=== PATIENT | female | born 1985 | race Hispanic/Latino ===

== ENCOUNTER 2020-07-20 17:45 | Emergency (ER) | payer MEDICARE ==
[~2020-07-20] VITALS: Ht 160 cm; Wt 76.2 kg
[2020-07-20] MEDS ORDERED: HYDROCODONE/APAP 10MG-325MG TAB PO ONE (19:00)
[2020-07-20] MEDS ORDERED: PREDNISONE 20 MG TAB PO ONE (19:00)
[2020-07-20] MEDS ORDERED: KETOROLAC TROMETHAMINE 60 MG/2 ML VIAL IM ONE (19:00)
[2020-07-20] MEDS ORDERED: PREDNISONE 20 MG TAB ONE (19:09)
[2020-07-20] MEDS ORDERED: HYDROCODONE/APAP 10MG-325MG TAB ONE (19:09)
[2020-07-20] MEDS ORDERED: KETOROLAC TROMETHAMINE 60 MG/2 ML VIAL ONE (19:09)
[2020-07-20] MEDS ORDERED: NAPROXEN250 MG PO (20:52)
[2020-07-20] MEDS ORDERED: ULTRAM 50MG50 MG PO (20:52)
== END 2020-07-20 21:00 | disposition home or self-care (01) ==
LOC: ER 18:37
DX: M72.2 Plantar fascial fibromatosis (principal); M25.572 Pain in left ankle and joints of left foot; M25.571 Pain in right ankle and joints of right foot
CPT/HCPCS: 73610; 99283; J1885; J7512

== ENCOUNTER 2020-10-20 21:26 | Emergency (ER) | payer OTHER ==
[~2020-10-20] VITALS: Ht 160 cm; Wt 76.2 kg
[~2020-10-20 21:26] MED LIST: NAPROXEN250 MG PO; ULTRAM 50MG50 MG PO
[2020-10-20] MEDS ORDERED: NAPROXEN250 MG PO (22:12)
[2020-10-20] MEDS ORDERED: ULTRAM50 MG PO (22:12)
[2020-10-20] MEDS ORDERED: PREDNISONE20 MG PO (22:12)
[2020-10-20] MEDS ORDERED: KETOROLAC TROMETHAMINE 60 MG/2 ML VIAL ONE (22:25)
[2020-10-20] MEDS ORDERED: HYDROCODONE/APAP 10MG-325MG TAB ONE (22:26)
[2020-10-20] MEDS ORDERED: METHYLPREDNISOLONE SOD SUCC 125 MG/2ML VIAL ONE (22:26)
[2020-10-20] MEDS ORDERED: HYDROCODONE/APAP 10MG-325MG TAB PO ONE (22:30)
[2020-10-20] MEDS ORDERED: METHYLPREDNISOLONE SOD SUCC 125 MG/2ML VIAL IM ONE (22:30)
[2020-10-20] MEDS ORDERED: KETOROLAC TROMETHAMINE 60 MG/2 ML VIAL IM ONE (22:30)
== END 2020-10-20 23:10 | disposition home or self-care (01) ==
LOC: ER 22:09
DX: L40.50 Arthropathic psoriasis, unspecified (principal); G89.29 Other chronic pain; Z79.1 Long term (current) use of non-steroidal anti-inflammatories (NSAID); Z79.52 Long term (current) use of systemic steroids; Z79.899 Other long term (current) drug therapy
CPT/HCPCS: J1885; J2930

== ENCOUNTER 2020-11-19 00:10 | Emergency (ER) | payer OTHER ==
[~2020-11-19] VITALS: Ht 160 cm; Wt 76.2 kg
[~2020-11-19 00:10] MED LIST changes: +PREDNISONE20 MG PO; +ULTRAM50 MG PO
[2020-11-19] MEDS ORDERED: KETOROLAC TROMETHAMINE 30 MG/ML VIAL IM STA (01:00)
[2020-11-19] MEDS ORDERED: DEXAMETHASONE 4 MG TAB PO STA (01:00)
[2020-11-19] MEDS ORDERED: ACETAMINOPHEN 325 MG TAB PO ONE (01:00)
== END 2020-11-19 02:06 | disposition home or self-care (01) ==
LOC: ER 00:54
DX: M25.571 Pain in right ankle and joints of right foot (principal); M79.671 Pain in right foot; L40.50 Arthropathic psoriasis, unspecified; Z79.1 Long term (current) use of non-steroidal anti-inflammatories (NSAID); Z79.52 Long term (current) use of systemic steroids
CPT/HCPCS: 99282; J1885; J8540

== ENCOUNTER 2021-09-02 16:39 | Emergency (ER) | payer OTHER ==
[~2021-09-02] VITALS: Ht 160 cm; Wt 76.2 kg
[2021-09-02] MEDS ORDERED: ONDANSETRON HCL 4 MG ORAL DISINTEGRATING TAB PO ONE (19:45)
[2021-09-02] MEDS ORDERED: ONDANSETRON HCL 4 MG ORAL DISINTEGRATING TAB ONE (19:47)
== END 2021-09-02 19:50 | disposition home or self-care (01) ==
LOC: ER 19:25
DX: R11.2 Nausea with vomiting, unspecified (principal); J11.1 Influenza due to unidentified influenza virus with other respiratory manifestations; L40.50 Arthropathic psoriasis, unspecified
CPT/HCPCS: 99282; Q0162

== ENCOUNTER 2022-02-08 14:17 | Emergency (ER) | payer OTHER ==
[~2022-02-08] VITALS: Ht 160 cm; Wt 76.2 kg
== END 2022-02-08 16:06 | disposition home or self-care (01) ==
LOC: ER 14:23
DX: R05.9 Cough, unspecified (principal); B34.9 Viral infection, unspecified; Z20.822 Contact with and (suspected) exposure to COVID-19; Z98.84 Bariatric surgery status
CPT/HCPCS: 87400; 99283; U0002

== ENCOUNTER 2022-07-04 16:08 | Emergency (ER) | payer OTHER ==
[~2022-07-04] VITALS: Ht 160 cm; Wt 76.2 kg
[2022-07-04] MEDS ORDERED: ONDANSETRON HCL INJ 2MG/ML 2ML 2 MG/ML VIAL IV STA (16:17)
[2022-07-04] MEDS ORDERED: FAMOTIDINE 20 MG/2 ML VIAL IV STA (16:17)
[2022-07-04] MEDS ORDERED: SODIUM CHLORIDE 0.9% 1000ML 1,000 ML IV ONE (16:30)
[2022-07-04] MEDS ORDERED: Morphine 2mg Syringe 2 MG/ML SYR IV ONE (16:30)
[2022-07-04 16:31] LABS: BASOPHILS # (AUTO) 0.1 (0.0-0.1); BASOPHILS % 0.4 % (0.0-1.0); EOSINOPHILS # (AUTO) 0.1 (0.0-0.4); EOSINOPHILS % 0.6 % (0.0-6.0); HEMATOCRIT 42.3 % (34.2-44.1); HEMOGLOBIN 14.1 g/dL (12.0-16.0); LYMPHOCYTES # (AUTO) 2.6 (1.0-3.2); LYMPHOCYTES % 22.5 % (18.0-39.1); MEAN CORPUSCULAR HEMOGLOBIN 31.5 pg (28-32); MEAN CORPUSCULAR HGB CONC 33.3 g/dL (31-35); MEAN CORPUSCULAR VOLUME 94.6 fL (81-99); MONOCYTES # (AUTO) 0.8 (0.2-0.8); MONOCYTES % 6.6 % (4.4-11.3); NEUTROPHILS % 69.6 % (38.7-80.0); PLATELET COUNT 318 x10e3/uL (140-360); RED BLOOD COUNT 4.47 x10e6/uL (3.6-5.1); RED CELL DISTRIBUTION WIDTH 11.8 % (11.7-14.4)
[2022-07-04 16:44] LABS: ALBUMIN 3.8 g/dL (3.5-5.0); ALBUMIN/GLOBULIN RATIO 1.2 (0.8-2.0); ANION GAP 14.7 mmol/L (8-16); CALCIUM 9.2 mg/dL (8.4-10.2); CREATININE, SERUM 0.71 mg/dL (0.57-1.11); POTASSIUM 3.7 mmol/L (3.5-5.1)
[2022-07-04] MEDS ORDERED: ONDANSETRON ODT4 MG PO (17:59)
[2022-07-04] MEDS ORDERED: PEPCID20 MG PO (17:59)
[2022-07-04] MEDS ORDERED: METOCLOPRAMIDE HCL 10 MG/2ML VIAL IV ONE (18:15)
[2022-07-04 18:57] LABS: CLARITY,URINE CLEAR (CLEAR); COLOR,URINE YELLOW (YELLOW); KETONES,URINE TRACE (NEGATIVE); LEUKOCYTE ESTERASE ,URINE NEGATIVE (NEGATIVE); NITRITE,URINE NEGATIVE (NEGATIVE); PROTEIN,URINE DIPSTICK NEGATIVE (NEGATIVE); URINE UROBILINOGEN 1 mg/dL (0.2 - 1)
[2022-07-04 18:58] LABS: BACTERIA,URINE FEW /HPF; EPITHELIAL CELLS,URINE FEW /LPF; MUCUS,URINE MANY (RARE); RBC,URINE 0-5 /HPF (0-5); WBC,URINE (MAN) 0-5 /HPF (0-5)
== END 2022-07-04 19:22 | disposition home or self-care (01) ==
LOC: ER 16:14
DX: R11.2 Nausea with vomiting, unspecified (principal); R10.13 Epigastric pain; L40.50 Arthropathic psoriasis, unspecified; Z98.84 Bariatric surgery status
CPT/HCPCS: 36415; 80053; 81001; 83690; 85025; 99284; J2270; J2405; J2765; J7030

== ENCOUNTER 2022-07-18 15:10 | Emergency (ER) | payer OTHER ==
[~2022-07-18] VITALS: Ht 160 cm; Wt 76.2 kg
[~2022-07-18 15:10] MED LIST changes: +ONDANSETRON ODT4 MG PO; +PEPCID20 MG PO
[2022-07-18] MEDS ORDERED: PROAIR DIGIHAL90 MCG PO (16:03)
[2022-07-18] MEDS ORDERED: IBUPROFEN600 MG PO (16:03)
[2022-07-18] MEDS ORDERED: BENZONATATE200 MG PO (16:03)
== END 2022-07-18 16:55 | disposition home or self-care (01) ==
LOC: ER 15:23
DX: R05.9 Cough, unspecified (principal); U07.1 COVID-19; L40.50 Arthropathic psoriasis, unspecified; Z98.84 Bariatric surgery status
CPT/HCPCS: 0223U; 36415; 87400; 99282

== ENCOUNTER 2022-08-29 19:04 | Emergency (ER) | payer OTHER ==
[~2022-08-29] VITALS: Ht 160 cm; Wt 76.2 kg
[~2022-08-29 19:04] MED LIST changes: +BENZONATATE200 MG PO; +IBUPROFEN600 MG PO; +PROAIR DIGIHAL90 MCG PO
[2022-08-29] MEDS ORDERED: KETOROLAC TROMETHAMINE 60 MG/2 ML VIAL IM STA (19:18)
[2022-08-29 21:59] VITALS: O2SAT 100
[2022-08-29] MEDS ORDERED: AZITHROMYCIN250 MG PO (22:01)
[2022-08-29] MEDS ORDERED: VENTOLIN HFA18 GM INH (22:01)
[2022-08-29] MEDS ORDERED: PREDNISONE20 MG PO (22:01)
== END 2022-08-29 22:01 | disposition home or self-care (01) ==
LOC: ER 19:15
DX: R05.9 Cough, unspecified (principal); J06.9 Acute upper respiratory infection, unspecified; R07.89 Other chest pain; L40.50 Arthropathic psoriasis, unspecified; Z20.822 Contact with and (suspected) exposure to COVID-19; Z98.84 Bariatric surgery status
CPT/HCPCS: 83518; 87070; 87400; 93005; 99283; J1885; U0002

== ENCOUNTER 2023-11-09 19:17 | Emergency (ER) | payer BC ==
[~2023-11-09] VITALS: Ht 160 cm; Wt 65.8 kg
[~2023-11-09 19:17] MED LIST changes: +AZITHROMYCIN250 MG PO; +NAPROSYN500 MG PO; +ORPHENADRINE C100 MG PO; +VENTOLIN HFA18 GM INH
[2023-11-09 19:23] VITALS: TEMP 98.4
[2023-11-09] MEDS ORDERED: ONDANSETRON HCL 4 MG ORAL DISINTEGRATING TAB PO ONE (19:30)
[2023-11-09] MEDS: ONDANSETRON HCL INJ 2MG/ML 2ML 2 MG/ML VIAL IV STA (19:48)
[2023-11-09] MEDS: SODIUM CHLORIDE 0.9% 1000ML 1,000 ML IV STA ×2 (19:48)
[2023-11-09] MEDS: KETOROLAC TROMETHAMINE 30 MG/ML VIAL IV STA (19:49)
[2023-11-09 20:04] LABS: BASOPHILS % 0.4 % (0.0-1.0); EOSINOPHILS # (AUTO) 0.3 (0.0-0.4); EOSINOPHILS % 3.7 % (0.0-6.0); HEMATOCRIT 43.4 % (34.2-44.1); HEMOGLOBIN 14.3 g/dL (12.0-16.0); LYMPHOCYTES # (AUTO) 2.1 (1.0-3.2); LYMPHOCYTES % 26.1 % (18.0-39.1); MEAN CORPUSCULAR HEMOGLOBIN 31.9 pg (28-32); MEAN CORPUSCULAR HGB CONC 32.9 g/dL (31-35); MEAN CORPUSCULAR VOLUME 96.9 fL (81-99); MONOCYTES # (AUTO) 0.5 (0.2-0.8); MONOCYTES % 6.7 % (4.4-11.3); NEUTROPHILS # (AUTO) 5.1 (2.1-6.9); NEUTROPHILS % 62.9 % (38.7-80.0); PLATELET COUNT 288 x10e3/uL (140-360); RED BLOOD COUNT 4.48 x10e6/uL (3.6-5.1); RED CELL DISTRIBUTION WIDTH 11.9 % (11.7-14.4); WHITE BLOOD COUNT 8.11 x10e3/uL (4.8-10.8)
[2023-11-09 20:08] LABS: BILIRUBIN,URINE SMALL (NEGATIVE); CLARITY,URINE SL CLOUDY (CLEAR); COLOR,URINE YELLOW (YELLOW); GLUCOSE, URINE NEGATIVE (NEGATIVE); KETONES,URINE 2+ (NEGATIVE); LEUKOCYTE ESTERASE ,URINE NEGATIVE (NEGATIVE); NITRITE,URINE NEGATIVE (NEGATIVE); PH,URINE 6 (5 - 7); PROTEIN,URINE DIPSTICK NEGATIVE (NEGATIVE); URINE UROBILINOGEN 2 mg/dL (0.2 - 1)
[2023-11-09 20:10] LABS: AMPHETAMINES SCREEN,URINE NEGATIVE (NEGATIVE); BENZODIAZEPINES SCREEN,URINE POSITIVE (NEGATIVE); CANNABINOIDS SCREEN,URINE POSITIVE (NEGATIVE); METHADONE SCREEN, URINE NEGATIVE (NEGATIVE); OPIATES SCREEN,URINE NEGATIVE (NEGATIVE); PHENCYCLIDINE SCREEN,URINE NEGATIVE (NEGATIVE)
[2023-11-09 20:19] LABS: ALBUMIN 3.6 g/dL (3.5-5.0); ALBUMIN/GLOBULIN RATIO 1.2 (0.8-2.0); ANION GAP 12.8 mmol/L (8-16); BILIRUBIN,TOTAL 0.7 mg/dL (0.2-1.2); CALCIUM 8.9 mg/dL (8.4-10.2); CREATININE, SERUM 0.69 mg/dL (0.57-1.11); POTASSIUM 3.8 mmol/L (3.5-5.1); TOTAL PROTEIN 6.7 g/dL (6.5-8.1)
[2023-11-09 20:23] LABS: BACTERIA,URINE MODERATE /HPF; EPITHELIAL CELLS,URINE MODERATE /LPF
[2023-11-09 21:35] VITALS: PULSE 80; RESP 16
[2023-11-09] MEDS ORDERED: ONDANSETRON ODT4 MG PO (22:03)
[2023-11-09] MEDS ORDERED: PAXLOVID 300-11 EAC1 PO (22:03)
[2023-11-09] MEDS ORDERED: KETOROLAC TROME10 MG PO (22:03)
[2023-11-09 22:57] VITALS: BP 135/86; PULSE 77; RESP 16; O2SAT 100
== END 2023-11-09 22:15 | disposition home or self-care (01) ==
LOC: ER 19:25
DX: R50.9 Fever, unspecified (principal); U07.1 COVID-19; R11.2 Nausea with vomiting, unspecified; R10.30 Lower abdominal pain, unspecified; R51.9 Headache, unspecified; F19.10 Other psychoactive substance abuse, uncomplicated
CPT/HCPCS: 36415; 74176; 80053; 80307; 81001; 83690; 85025; 99284; J1885; J2405; J7030; U0002

== ENCOUNTER 2024-03-19 16:28 | Emergency (ER) | payer SELFPAY ==
[~2024-03-19] VITALS: Ht 160 cm; Wt 65.8 kg
[~2024-03-19 16:28] MED LIST changes: +KETOROLAC TROME10 MG PO; +PAXLOVID 300-11 EAC1 PO
[2024-03-19 16:45] VITALS: TEMP 98.6
[2024-03-19 17:31] LABS: BASOPHILS % 0.4 % (0.0-1.0); EOSINOPHILS # (AUTO) 0.2 (0.0-0.4); EOSINOPHILS % 2.1 % (0.0-6.0); HEMATOCRIT 44.1 % (34.2-44.1); HEMOGLOBIN 14.3 g/dL (12.0-16.0); LYMPHOCYTES # (AUTO) 1.5 (1.0-3.2); LYMPHOCYTES % 21.1 % (18.0-39.1); MEAN CORPUSCULAR HEMOGLOBIN 32.1 pg (28-32); MEAN CORPUSCULAR HGB CONC 32.4 g/dL (31-35); MEAN CORPUSCULAR VOLUME 98.9 fL (81-99); MONOCYTES # (AUTO) 0.5 (0.2-0.8); MONOCYTES % 6.6 % (4.4-11.3); NEUTROPHILS # (AUTO) 4.9 (2.1-6.9); NEUTROPHILS % 69.4 % (38.7-80.0); PLATELET COUNT 264 x10e3/uL (140-360); RED BLOOD COUNT 4.46 x10e6/uL (3.6-5.1); RED CELL DISTRIBUTION WIDTH 11.6 % (11.7-14.4); WHITE BLOOD COUNT 7.02 x10e3/uL (4.8-10.8)
[2024-03-19 17:35] LABS: INR 0.86; PROTHROMBIN TIME 12.3 seconds (11.9-14.5)
[2024-03-19] MEDS: ONDANSETRON HCL INJ 2MG/ML 2ML 2 MG/ML VIAL IV STA (17:40)
[2024-03-19] MEDS: SODIUM CHLORIDE 0.9% 1000ML 1,000 ML IV STA (17:40)
[2024-03-19] MEDS: KETOROLAC TROMETHAMINE 30 MG/ML VIAL IV STA (17:40)
[2024-03-19 17:44] LABS: ALBUMIN 3.7 g/dL (3.5-5.0); ALBUMIN/GLOBULIN RATIO 1.2 (0.8-2.0); ANION GAP 14.2 mmol/L (8-16); BILIRUBIN,TOTAL 0.5 mg/dL (0.2-1.2); CALCIUM 9.1 mg/dL (8.4-10.2); CREATININE, SERUM 0.67 mg/dL (0.57-1.11); MAGNESIUM 1.7 MG/DL (1.3-2.1); TOTAL PROTEIN 6.9 g/dL (6.5-8.1)
[2024-03-19 17:45] LABS: POTASSIUM 3.2 mmol/L (3.5-5.1)
[2024-03-19] MEDS ORDERED: IOPAMIDOL 370 MG/ML 100 ML INFUS..BTL INJ ONE (17:51)
[2024-03-19 17:59] LABS: BILIRUBIN,URINE NEGATIVE (NEGATIVE); CLARITY,URINE SL CLOUDY (CLEAR); COLOR,URINE YELLOW (YELLOW); GLUCOSE, URINE NEGATIVE (NEGATIVE); KETONES,URINE 1+ (NEGATIVE); LEUKOCYTE ESTERASE ,URINE NEGATIVE (NEGATIVE); NITRITE,URINE NEGATIVE (NEGATIVE); PH,URINE 6.5 (5 - 7); PROTEIN,URINE DIPSTICK NEGATIVE (NEGATIVE); URINE UROBILINOGEN 0.2 mg/dL (0.2 - 1)
[2024-03-19 18:25] LABS: BACTERIA,URINE RARE /HPF; EPITHELIAL CELLS,URINE FEW /LPF; RBC,URINE 0-5 /HPF (0-5); WBC,URINE (MAN) 0-5 /HPF (0-5)
[2024-03-19 18:30] LABS: AMPHETAMINES SCREEN,URINE POSITIVE (NEGATIVE); OPIATES SCREEN,URINE NEGATIVE (NEGATIVE); PHENCYCLIDINE SCREEN,URINE NEGATIVE (NEGATIVE)
[2024-03-19 18:31] LABS: BENZODIAZEPINES SCREEN,URINE POSITIVE (NEGATIVE); CANNABINOIDS SCREEN,URINE NEGATIVE (NEGATIVE); COCAINE SCREEN,URINE POSITIVE (NEGATIVE); METHADONE SCREEN, URINE NEGATIVE (NEGATIVE)
[2024-03-19 19:03] VITALS: PULSE 62; RESP 16; O2SAT 99
[2024-03-19] MEDS ORDERED: ONDANSETRON ODT4 MG PO (19:05)
[2024-03-19] MEDS ORDERED: DICYCLOMINE HCL20 MG PO (19:05)
== END 2024-03-19 19:14 | disposition home or self-care (01) ==
LOC: ER 17:06
DX: R19.7 Diarrhea, unspecified (principal); R10.11 Right upper quadrant pain; F19.10 Other psychoactive substance abuse, uncomplicated; F41.9 Anxiety disorder, unspecified; F32.A Depression, unspecified; Z98.84 Bariatric surgery status; F17.210 Nicotine dependence, cigarettes, uncomplicated
CPT/HCPCS: 36415; 74177; 80053; 80307; 81001; 83690; 83735; 85025; 85610; 85730; 99284; J1885; J2405; J2470; J7030; Q9967

== ENCOUNTER 2024-11-24 13:22 | Emergency (ER) | payer SELFPAY ==
[~2024-11-24] VITALS: Ht 160 cm; Wt 65.8 kg
[~2024-11-24 13:22] MED LIST changes: +DICYCLOMINE HCL20 MG PO
[2024-11-24] MEDS ORDERED: PREDNISONE 20 MG TAB ONE ×2 (14:19→14:22)
[2024-11-24 14:22] LABS: BASOPHILS % 0.4 % (0.0-1.0); EOSINOPHILS % 2.5 % (0.0-6.0); LYMPHOCYTES % 27.9 % (18.0-39.1); MONOCYTES % 7.0 % (4.4-11.3); NEUTROPHILS % 62.0 % (38.7-80.0); RED CELL DISTRIBUTION WIDTH 12.2 % (11.7-14.4)
[2024-11-24] MEDS: PREDNISONE 20 MG TAB PO SCH (14:24)
[2024-11-24 14:36] LABS: EST GLOMERULAR FILTRATION RATE 116 ML/MIN (>=60)
[2024-11-24 14:37] VITALS: PULSE 74; RESP 20
[2024-11-24] MEDS: ALBUTEROL/IPRATROPIUM 3 ML NEB NEB ONE (14:37)
[2024-11-24] MEDS ORDERED: PREDNISONE20 MG PO (16:26)
[2024-11-24] MEDS ORDERED: SYMBICORT 16010.2 GM INH (16:29)
[2024-11-24 16:40] VITALS: PULSE 83; RESP 20; TEMP 98; O2SAT 96
== END 2024-11-24 16:47 | disposition home or self-care (01) ==
LOC: ER 14:07
DX: R06.02 Shortness of breath (principal); R07.89 Other chest pain; J45.901 Unspecified asthma with (acute) exacerbation; R05.9 Cough, unspecified; F41.9 Anxiety disorder, unspecified; F32.A Depression, unspecified; F90.9 Attention-deficit hyperactivity disorder, unspecified type; R94.31 Abnormal electrocardiogram [ECG] [EKG]
CPT/HCPCS: 36415; 71046; 80048; 82550; 84484; 85025; 93005; 99284; J7512

== ENCOUNTER 2024-12-08 16:58 | Emergency (ER) | payer SELFPAY ==
[~2024-12-08] VITALS: Ht 160 cm; Wt 65.8 kg
[~2024-12-08 16:58] MED LIST changes: +SYMBICORT 16010.2 GM INH
[2024-12-08 18:24] VITALS: PULSE 82; RESP 18; TEMP 97.9
[2024-12-08] MEDS: IBUPROFEN 600 MG TAB PO STA (20:37)
[2024-12-08 21:38] VITALS: BP 143/107; PULSE 77; RESP 17; TEMP 98; O2SAT 100
== END 2024-12-08 21:10 | disposition home or self-care (01) ==
LOC: ER 19:34
DX: S90.32XA Contusion of left foot, initial encounter (principal); Y04.8XXA Assault by other bodily force, initial encounter; Y92.89 Other specified places as the place of occurrence of the external cause; J45.909 Unspecified asthma, uncomplicated; F41.9 Anxiety disorder, unspecified; F32.A Depression, unspecified; L40.50 Arthropathic psoriasis, unspecified; F90.9 Attention-deficit hyperactivity disorder, unspecified type; F17.210 Nicotine dependence, cigarettes, uncomplicated
CPT/HCPCS: 99283